=== PATIENT | male | born 1945 | race Caucasian/White ===

== ENCOUNTER → 2016-07-14 | Outpatient (CLI) | payer MEDICARE, OTHER ==
[~2016-07-14] MED LIST: AUGMENTIN875 MG PO; AZILECT1 MG PO; CELEBREX200 MG PO; COLACE-DPS100 MG PO; COUMADIN5 MG PO; COUMADIN7.5 MG PO; FEOSOL-DPS325 MG PO; FLEXERIL-DPS10 MG PO; FLOMAX DPS0.4 MG PO; IMURAN DPS50 MG PO; INVANZ1 G1 IV; KLOR-CON M2020 ME1 PO; LANOXIN125 MCG PO; LASIX DPS20 MG PO; LIPITOR DPS40 MG PO; LOPRESSOR DPS50 MG PO; MAALOX DPS30 ML PO; MACROBID100 MG PO; MELATONIN3 MG PO; MIRALAX17 GM PO; MORPHINE2 MG/ML IV; MYCOSTATIN PWD15 GM TP; MYLICON DPS80 MG PO; NITROSTAT0.4 MG SL; NORMAL SALINE FL5 ML IV; OCEAN NASAL MIS45 ML NS; OMNICEF DPS300 MG PO; PERCOCET 10 DPS1 TAB PO; POLYETHYLENE GL17 GM PO; PROVENTIL HFA6.7 GM IH; PROVENTIL2.5 MG/3 M IH; REQUIP1 MG PO; RIFAMPIN PO; ROBAXIN-DPS750 MG PO; SENOKOT DPS8.6 MG PO; SINEMET CR 25-1 EACH PO; SINEMET CR 50/21 TAB PO; SURFAK DPS240 MG PO; TENORMIN DPS50 MG PO; TYLENOL DPS325 MG PO; TYLENOL EXTRA500 M1 PO; ULTRAM DPS50 MG PO; VANCOMYCIN HCL5 GM IV; VITAMIN B-12500 MCG PO; ZOLOFT50 MG PO
--- NOTE | ~2016-07-14 | CST ---
Cardiac Perfusion Imaging Demographics Patient Name FAZAL Cardoza Gender Male Patient Number [id number] Race Visit Number [id number] Ethnicity [employer] Room Number Accession Number [id number] Height 67 inches Date of 1945 Weight 190 pounds Age 70 year(s) BSA 1.98 m Referring Physician Esa Lloyd MD BMI 29.76 kg/m Brigido Francois MD Interpreting [facility] Date of study 07/14/2016 Physician King Tj Hernandez MD Supervising MD/MLP King Tj MELO Technologist Bennett Hough, [facility] Ordering Physician Brigido Francois Stress Elaine Weston MD ophthalmology surgical technician Stress ECG Reading [facility] Nurse Kenn Purcell Physician King Tj Moreira The procedure was explained in detail to the patient. Risks, complications and alternative treatments were reviewed. Written consent was obtained. Medications Reviewed with Patient prior to Procedure. Procedure Procedure Type: Nuclear Stress Test:Pharmacological, Lexiscan Procedure Start time: 07/14/2016 09:45 Indications: Pre-op, Atrial fibrillation, History of CAD and Tobacco use-prior. Risk Factors The patient risk factors include:prior PCI;former tobacco use and hypertension. Conclusions Summary Perfusion Images: The overall quality of the study is good. Left ventricular cavity is noted to be normal on the stress and rest studies. There is no evidence of abnormal lung activity. The right ventricle is not visualized and cannot be assessed. Stress SPECT images demonstrate homogenous tracer distribution throughout the myocardium. Rest SPECT images demonstrate homogenous tracer distribution throughout the myocardium. Gated SPECT imaging reveals normal myocardial thickening and wall motion. The left ventricular ejection fraction was calculated to be 54%. Impression ECG portion of stress test is clinically negative for ischemia by diagnostic criteria. Myocardial perfusion imaging is normal. Overall left ventricular systolic function was normal without regional wall motion abnormalities. There are no previous studies for comparison. Stress Protocols Resting ECG Atrial fibrillation. Right bundle branch block. Resting HR:67 bpm Resting BP:128/72 mmHg Stress Protocol:Pharmacologic - Lexiscan Predicted HR: 150 bpm Test duration: 06:00 min Reason for termination:Infusion complete ECG Findings Atrial fibrillation. Right bundle branch block. Complications Procedure complication: None. Stress Interpretation Appropriate hemodynamic response to Lexiscan. No significant ST-T wave changes with Lexiscan. ECG portion is negative for ischemia by diagnostic criteria. Imaging Results Summed scores - Summed stress score: 0 - Summed rest score: 0 - Summed difference score: 0 Stress ejection Ejection fraction:54 % EDV :100 ml ESV :46 ml Stroke volume :54 ml LV mass :137 gr Imaging Protocols Rest Stress Isotope:Tc99m Myoview IV Isotope: Tc99m Myoview IV Isotope dose:10.4 mCi Isotope dose:31.9 mCi Date:07/14/2016 08:38 Date:07/14/2016 09:48 Technique: SPECT Technique: Gated Supine SPECT Supine Scan Time:30 minutes post injection Scan Time:15-30 minutes post injection Procedure Medications - Regadenoson (Lexiscan) 0.4 mg IV over 10-15 sec. I.V. 0.4 mg. Medications administered per verbal order and read back to physician prior to administration. Medical History Admission Data Admission date: 07/14/2016 Admission Time: 08:07 Hospital Status: Outpatient. Signatures
== END | disposition home or self-care (01) ==
LOC: CARD 08:07
DX: Z01.818 Encounter for other preprocedural examination (principal)